=== PATIENT | male | born 1980 | race African-American/Black ===

== ENCOUNTER 2022-02-26 09:32 | Outpatient (CLI) | payer BC | END 2022-02-26 09:33 | disposition home or self-care (01) | LOC: BICULT 09:32 | PROVIDERS: ATTEND Internal Medicine Gastroenterology | DX: R10.12 Left upper quadrant pain (principal); R10.13 Epigastric pain; N28.1 Cyst of kidney, acquired | CPT/HCPCS: 76700 ==

== ENCOUNTER 2022-07-10 11:53 | Outpatient (CLI) | payer BC | END 2022-07-10 11:54 | disposition home or self-care (01) | LOC: NM 11:53 | PROVIDERS: ATTEND Internal Medicine Gastroenterology | DX: R10.12 Left upper quadrant pain (principal); K30 Functional dyspepsia; R71.8 Other abnormality of red blood cells | CPT/HCPCS: 78227; A9537 ==